=== PATIENT | male | born 1985 | race Caucasian/White ===

== ENCOUNTER 2018-08-09 21:44 | Emergency (ER) | payer OTHER ==
[~2018-08-09] VITALS: Ht 175.3 cm; Wt 90.7 kg
[2018-08-09 21:58] VITALS: Ht 175.3 cm; Wt 90.7 kg
[2018-08-09 23:30] LABS: BASOPHIL % 0.3 % (0-2); PLATELET COUNT 169 x10^3mcL (130-400); RED CELL DISTRIBUTION WIDTH 13.1 % (11.5-14.5)
[2018-08-09 23:37] LABS: CALCIUM 8.5 mg/dL (8.5-10.1); CARBON DIOXIDE 21.6 mmol/L (21-32); CHLORIDE SERUM 102 mmol/L (98-107); CREATININE SERUM 0.9 mg/dL (0.7-1.3); GFR1 > 60 mL/min; GLUCOSE SERUM 114 mg/dL (74-106); POTASSIUM SERUM 3.7 mmol/L (3.5-5.1); SODIUM SERUM 136 mmol/L (136-145)
[2018-08-09 23:52] LABS: ALKALINE PHOSPHATASE 146 U/L (46-116); ALT/SGPT 169 U/L (16-63); AST/SGOT 72 U/L (15-37); BILIRUBIN TOTAL 0.91 mg/dL (0.20-1.00); TOTAL PROTEIN, SERUM 7.4 g/dL (6.4-8.2)
[2018-08-09 23:54] LABS: ALBUMIN 3.1 g/dL (3.4-5.0)
[2018-08-10] MEDS ORDERED: KALETRA1 TAB PO ×2 (00:12→00:13)
[2018-08-10] MEDS ORDERED: TRUVADA 200 MG1 EACH PO (00:14)
[2018-08-10 01:42] LABS: UA SPECIFIC GRAVITY 1.025 (1.005-1.035); microscopic required? YES; urine erythrocyte NEGATIVE (NEGATIVE)
[2018-08-10 02:37] VITALS: BP 133/72
== END 2018-08-10 02:37 | disposition home or self-care (01) ==
LOC: ED 21:44
PROVIDERS: Emergency Medicine
DX: B34.9 Viral infection, unspecified (principal)
CPT/HCPCS: 87804; J1885; J2405; J7030; Q0092